=== PATIENT | male | born 1935 | race Caucasian/White ===

== ENCOUNTER 2018-11-19 17:03 | Inpatient (IN) | payer MEDICARE, BC ==
[~2018-11-19] VITALS: Ht 185.4 cm; Wt 78.9 kg
[~2018-11-19 17:03] MED LIST: AMLO10TA4 PO; ASPI-605 PO; DUTA0.5C2 PO; ENOX40DI SQ; FERR325T23 PO; LEVO125T PO; ROSU20TA2 PO
--- NOTE | 2018-11-19 17:16 | NUR ---
PT BIB AND FRIEND C/O VOMITNG SINCE LAST NIGHT AND GEN WEAKNESS, PT IS AAOX3, NOT IN RESPIRATORY DISTRESS, HOOKED TO MONITOR, KEPT RESTED AND COMFORTABLE, WILL CONTINUE TO MONITOR.
--- NOTE | 2018-11-19 17:20 | NUR ---
IV LINE ESTABLISHED, BLOOD DRAWNED AND SENT TO LAB.
--- NOTE | 2018-11-19 17:28 | NUR ---
AT BEDSIDE FOR EVAL.
[2018-11-19] MEDS ORDERED: ONDANSETRON HCL/PF 4 MG/2 ML VIAL ONE (17:33)
[2018-11-19] MEDS ORDERED: PANTOPRAZOLE 40 MG VIAL ONE (17:43)
[2018-11-19 17:48] LABS: BASOPHILS # (AUTO) 0.2 /CMM (0.0-0.2); BASOPHILS % (AUTO) 1.6 % (0.0-2.0); HEMATOCRIT 34 % (39-51); HEMOGLOBIN 11.3 g/dL (13.5-17.5); LYMPHOCYTES # (AUTO) 0.3 /CMM (0.8-4.8); LYMPHOCYTES % (AUTO) 2.8 % (20.0-44.0); MEAN CORPUSCULAR HGB CONC 33 g/dl (31.0-36.0); MEAN CORPUSCULAR VOLUME 85 fL (80-96); MONOCYTES # (AUTO) 0.4 /CMM (0.1-1.30); MONOCYTES % (AUTO) 3.6 % (2.0-12.0); NEUTROPHILS # (AUTO) 9.6 /CMM (1.8-8.9); PLATELET COUNT (AUTO) 113 /CMM (150-450); RED BLOOD CELL COUNT(AUTO) 4.04 MIL/uL (4.5-6.0); WHITE BLOOD COUNT (AUTO) 10.5 K/uL (4.3-11.0)
--- NOTE | 2018-11-19 17:52 | NUR ---
HEEL ROOM SUPERVISOR AT BEDSIDE FOR XRAY.
[2018-11-19] MEDS ORDERED: IV NS 0.9% 1,000 ML BAG IV ONE ×3 (18:00→20:00)
[2018-11-19] MEDS ORDERED: ONDANSETRON HCL/PF 4 MG/2 ML VIAL IVP ONE (18:00)
[2018-11-19] MEDS ORDERED: PANTOPRAZOLE 40 MG VIAL IV ONE (18:00)
[2018-11-19 18:02] LABS: ALANINE AMINOTRANSFERASE 17 U/L (12-78); ALBUMIN 3.3 g/dL (3.4-5.0); ALKALINE PHOSPHATASE 44 U/L (46-116); ASPARTATE AMINOTRANSFERASE 29 U/L (15-37); BILIRUBIN,DIRECT 0.2 mg/dL (0.0-0.2); BILIRUBIN,TOTAL 0.7 mg/dL (0.2-1.0); CALCIUM, SERUM 8.9 mg/dL (8.5-10.1); CARBON DIOXIDE 23 mmol/L (21-32); CHLORIDE 101 mmol/L (98-107); CREATININE 1.6 mg/dL (0.6-1.3); GLUCOSE 143 mg/dL (74-106); LIPASE 161 U/L (73-393); POTASSIUM 3.8 mmol/L (3.5-5.1); SODIUM SERUM 135 mmol/L (136-145); TOTAL PROTEIN, SERUM 6.4 g/dL (6.4-8.2); UREA NITROGEN, BLOOD 31 mg/dL (7-18)
--- NOTE | 2018-11-19 18:16 | NUR ---
PT IS WHEELED TO CT SCAN VIA [facility]
[2018-11-19] MEDS ORDERED: CLOP75TA15 PO (18:32)
--- NOTE | 2018-11-19 19:18 | NUR ---
BED ASSIGNMENT 323-1
--- NOTE | 2018-11-19 19:30 | NUR ---
PAGED NALINI FRANKLIN SOCIAL WORKER DELINQUENCY PREVENTION
--- NOTE | 2018-11-19 19:44 | NUR ---
DR. ANDREWS ON THE PHONE WITH DR. LONDON
--- NOTE | 2018-11-19 19:54 | NUR ---
REPORT GIVEN TO SIVA ANDERSON.
[2018-11-19 20:28] LABS: APPEARANCE,URINE Slightly Cloudy (CLEAR); BILIRUBIN,URINE SMALL (NEGATIVE); BLOOD, URINE Small Ery/uL (NEGATIVE); COLOR,URINE Dark (YELLOW); KETONES,URINE Trace (NEGATIVE); LEUKOCYTE ESTERASE ,URINE Negative (NEGATIVE); NITRITE, URINE Negative (NEGATIVE); PH,URINE 5.5 (5.0-8.0); PROTEIN,URINE 30 mg/dl (NEGATIVE); UGLUCOSE Negative (NEGATIVE); UROBILINOGEN,URINE 0.2 EU/dL (0.2)
[2018-11-19 20:35] LABS: BACTERIA,URINE Few /HPF (None Seen); RBC,URINE 0-2 /HPF (0-2); SQUAMOUS EPITHELIAL CELL,UR Moderate /HPF (None Seen); WBC,URINE 0-2 /HPF (0-3)
[2018-11-19 22:00] VITALS: BP 94/54
[2018-11-19 22:02] VITALS: BP 92/57
--- NOTE | 2018-11-19 22:02 | NUR ---
GRADUATE STUDIES DEAN OPENING NOTES: RECEIVED PT ON ROOM AIR AND IS TOLERATING WELL. PT IS A/OX3. WHEN ASKED SOME QUESTIONS, PT DOES NOT FULLY REMEMBER WHAT HAPPENED. PT HAS IV ON RAC #18G AND IS BEING BOLUSED WITH A LITER OF NS. PT TO BE PLACED ON TELE MONITOR. BED KEPT IN LOW, LOCKED POSITION, AND SIDE RAILS X 2UP. BED ALARM ACTIVATED. WILL CONTINUE TO MONITOR PT. Addendum: 11/19/18 at 2247 by MIR DOMINGUEZ RN PT ALSO CAME WITH JOHNSTON CATHETER INSERTED BY ER DRAINING TO GRAVITIY WITH FABIAN URINE SHOWING.
[2018-11-19] MEDS ORDERED: ZOLPIDEM TARTRATE 5 MG TABLET PO PRN (22:30)
[2018-11-19] MEDS ORDERED: ONDANSETRON HCL/PF 4 MG/2 ML VIAL IVP PRN (22:30)
[2018-11-19] MEDS ORDERED: MAG HYDROX/AL HYDROX/SIMETH 30 ML UDC PO PRN (22:30)
[2018-11-19] MEDS ORDERED: ACETAMINOPHEN 325 MG TABLET PO PRN (22:30)
[2018-11-19] MEDS ORDERED: Z GUARD REMEDY 2 OZ OINT TP PRN (22:30)
[2018-11-19] MEDS ORDERED: HYDROCODONE/APAP 5/325MG 1 EACH TABLET PO PRN (22:30)
--- NOTE | 2018-11-19 22:45 | NUR ---
WOODS SUPERINTENDENT NOTES: TELE READING SHOWS SB 57 WITH PVCS.
--- NOTE | 2018-11-19 22:54 | NUR ---
NASIR ANDERSON NOTES: DR. CRESPO AT BEDSIDE. Addendum: 11/19/18 at 2254 by MIR DOMINGUEZ RN DR. CRESPO AWARE OF BP 92/57 HR 59.
--- NOTE | 2018-11-19 23:16 | NUR ---
DETECTIVE BUREAU CHIEF NOTES: SPOKE WITH DR. CRESPO; OK TO HOLD OFF PICC LINE PLACEMENT. NOT NECESSARY AT THIS TIME.
[2018-11-19] MEDS: IV NS 0.9% 1,000 ML IV SCH (23:19)
[2018-11-20] VITALS (8 sets, daily range): BP systolic 84–114; BP diastolic 50–75
[2018-11-20 06:31] LABS: BASOPHILS % (AUTO) 0.2 % (0.0-2.0); EOSINOPHILS % (AUTO) 0.1 % (0.0-6.0); HEMATOCRIT 28 % (39-51); HEMOGLOBIN 9.5 g/dL (13.5-17.5); LYMPHOCYTES # (AUTO) 0.5 /CMM (0.8-4.8); LYMPHOCYTES % (AUTO) 6.9 % (20.0-44.0); MEAN CORPUSCULAR HGB CONC 34 g/dl (31.0-36.0); MEAN CORPUSCULAR VOLUME 84 fL (80-96); MONOCYTES # (AUTO) 0.3 /CMM (0.1-1.30); NEUTROPHILS # (AUTO) 6.1 /CMM (1.8-8.9); NEUTROPHILS % (AUTO) 87.8 % (43.0-81.0); PLATELET COUNT (AUTO) 93 /CMM (150-450); RED BLOOD CELL COUNT(AUTO) 3.36 MIL/uL (4.5-6.0)
--- NOTE | 2018-11-20 06:42 | NUR ---
DIAMOND ASSORTER CLOSING NOTES: ALL NEEDS WERE ATTENDED AND ANTICIPATED FOR. PT RESTING IN BED COMFORTABLY AT THIS TIME. PT IS A/OX3. PT ANTICIPATING BREAKFAST BUT INFORMED HIM THAT HE IS NOT YET CLEARED TO HAVE ANYTHING TO EAT OR DRINK. PT ON TELE MONITOR AND READING SHOWS SB 58. PT ALSO HAS JOHNSTON CATH AND IS ATTACHED TO DRAINAGE BAG WITH URINE DRAINING. OUTPUT WAS 450ML. BED ALARM ACTIVATED. BED KEPT IN LOW, LOCKED POSITION, AND SIDE RAILS X 2UP. WILL ENDORSE TO AM NURSE FOR GYPSY. Addendum: 11/20/18 at 0648 by MIR DOMINGUEZ RN PT HAS IV ON R AC #18G AND IS BEING INFUSED WITH IV NS AT 100ML/HR.
[2018-11-20 07:06] LABS: CALCIUM, SERUM 7.7 mg/dL (8.5-10.1); CREATININE 1.3 mg/dL (0.6-1.3); MAGNESIUM 1.9 mg/dL (1.8-2.4); PHOSPHORUS 3.7 mg/dL (2.5-4.9); POTASSIUM 4.1 mmol/L (3.5-5.1)
--- NOTE | 2018-11-20 08:00 | NUR ---
RN NOTES SEEN PATIENT IN THE BED SLEEPING, NO ACUTE RESPIRATORY DISTRESS, V/S STABLE. AROUSE WHEN CALLED NAME OR TOUCHED, CALL LIGHT WITHIN TO REACH, CONTINUED MONITORING.
--- NOTE | 2018-11-20 08:30 | NUR ---
rn notes d/c tele to med surge per battery plate remover Dr. Rivera.
[2018-11-20] MEDS: ATORVASTATIN 40 MG TABLET PO SCH (08:51)
[2018-11-20] MEDS: LEVOTHYROXINE SODIUM 125 MCG TABLET PO SCH (08:52)
[2018-11-20] MEDS: AMLODIPINE BESYLATE 10 MG TABLET PO SCH (08:53)
[2018-11-20] MEDS: IV NS 0.9% 1,000 ML IV SCH ×2 (08:57→23:32)
[2018-11-20] MEDS ORDERED: Medication Not On Formulary EA (Rosuvastatin Calcium (Crestor) 20 MG) PO SCH (09:00)
--- NOTE | 2018-11-20 09:14 | NUR ---
RN NOTES SEEN PATIENT BY MIKAL WAGNER, REMOVED JOHNSTON CATHETER, ALSO CHANGED NPO TO CLEAR LIQUID DIET TOLERATED, ADMINISTERED SCHEDULED MEDICATION, HELD NORVASC, BECAUSE OF LOW BP 107/65, P-63, PATIENT STABLE, REFUSED PAIN, NO COMPLAINING OF NAUSEA/VOMITING. CALL LIGHT WITHIN TO REACH CONTINUED MONITORING.
[2018-11-20 10:10] LABS: BAND % (MANUAL) 2 % (0.0-5.0); LYMPHOCYTES % (MANUAL) 6 % (16-48); MONOCYTES % (MANUAL) 3 % (0-11.0); NEUTROPHILS % (MANUAL) 89 (42-76)
--- NOTE | 2018-11-20 13:14 | NUR ---
rn notes Seen patient by gastrologist Dr. Lewis, no new orders keep patient clear liquid diet. continued monitoring.
--- NOTE | 2018-11-20 14:00 | NUR ---
rn notes PATIENT WAS WALKING WITH THE PT, USING WALKER, SAFETY PRECAUTION MAINTAINED ALL THE TIME.
--- NOTE | 2018-11-20 18:30 | NUR ---
RN NOTES PATIENT STABLE, REFUSED PAIN, NO ACUTE RESPIRATORY DISTRESS, V/S STABLE. INFUSING NS AT 75 ML/HR ON RIGHT AC AREA INTACT. PATIENT AMBULATORY, CALL LIGHT WITHIN TO REACH. SAFETY PRECAUTION MAINTAINED ALL THE TIME. ENDORSED ONCOMING NURSE FOLLOW PLAN OF CARE.
--- NOTE | 2018-11-20 20:00 | NUR ---
ms rn notes received pts in bed a/ox4 no sob no distress noted breathing even and unlabored ,on room air sating 97%. v/s stable afebrile , all needs attended too call light within reach , all due meds given as ordered , with ivf of ns at 75cc/hr infusing well , with iv site on right fa g#22 and right ac G#18 intact and patent .Dressing on left neck dry no bleeding noted , kept pts clean dry and comfortable.
[2018-11-21 06:20] LABS: BASOPHILS % (AUTO) 0.3 % (0.0-2.0); EOSINOPHILS % (AUTO) 1.2 % (0.0-6.0); HEMATOCRIT 28 % (39-51); HEMOGLOBIN 9.2 g/dL (13.5-17.5); LYMPHOCYTES # (AUTO) 0.7 /CMM (0.8-4.8); MEAN CORPUSCULAR HGB CONC 33 g/dl (31.0-36.0); MEAN CORPUSCULAR VOLUME 85 fL (80-96); MONOCYTES # (AUTO) 0.7 /CMM (0.1-1.30); MONOCYTES % (AUTO) 12.7 % (2.0-12.0); NEUTROPHILS # (AUTO) 4.1 /CMM (1.8-8.9); NEUTROPHILS % (AUTO) 73.8 % (43.0-81.0); PLATELET COUNT (AUTO) 80 /CMM (150-450); RED BLOOD CELL COUNT(AUTO) 3.33 MIL/uL (4.5-6.0); WHITE BLOOD COUNT (AUTO) 5.5 K/uL (4.3-11.0)
[2018-11-21 06:22] LABS: CALCIUM, SERUM 7.6 mg/dL (8.5-10.1); CARBON DIOXIDE 24 mmol/L (21-32); CHLORIDE 108 mmol/L (98-107); CREATININE 1.3 mg/dL (0.6-1.3); GLUCOSE 94 mg/dL (74-106); SODIUM SERUM 138 mmol/L (136-145); UREA NITROGEN, BLOOD 21 mg/dL (7-18)
--- NOTE | 2018-11-21 07:08 | NUR ---
ms rn notes pts in bed awake and responsive , continue on ns at 75cc/hr infusing well, all needs attended too call light within reach , pts on mechanical soft diet as advance pts toierated full liquids .pts is comfortable in bed . will endorse to rn day shift for continuity of care.
[2018-11-21] MEDS: LEVOTHYROXINE SODIUM 125 MCG TABLET PO SCH (07:13)
[2018-11-21 08:00] VITALS: BP 124/71
--- NOTE | 2018-11-21 08:00 | NUR ---
RN NOTES RECEIVED PATIENT IN THE BED A/O X3/4 NO ACUTE RESPIRATORY DISTRESS. PATIENT REFUSED PAIN, INFUSING NS AT 75 ML/HR ON RIGHT FA INTACT. PATIENT USING URINAL. PATIENT TURN AND REPOSTION SELF IN THE BED. ALSO ADMINISTERED SCHEDULED MEDICATION. SEEN MIKAL WAGNER. PATIENT POSSIBLE DISCHARGEE HOME IN AFTERNOON AFTER TOLERATING REGULAR FOOD.
[2018-11-21 09:58] VITALS: BP 124/71
[2018-11-21] MEDS: ATORVASTATIN 40 MG TABLET PO SCH (09:58)
[2018-11-21] MEDS: AMLODIPINE BESYLATE 10 MG TABLET PO SCH (09:58)
--- NOTE | 2018-11-21 10:30 | NUR ---
RN NOTES PATIENT WALKING IN THE HALLWAY USING WALKER, STABLE, NO COMPLAINING OF PAIN, V/S STABLE, NO NAUSEA VOMITING, STABLE TO AMBULATING.
[2018-11-21] MEDS: IV NS 0.9% 1,000 ML IV SCH (10:47)
--- NOTE | 2018-11-21 12:21 | NUR ---
rn notes patient will discharge home self care per hospitalist order MIKAL Stiles.
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
== END 2018-11-21 13:45 | disposition home or self-care (01) | DRG 683 ==
LOC: ER 17:05 → TELE 19:47 → MED 11-20 08:30
PROVIDERS: ADMIT Family Medicine; ATTEND Nurse Practitioner Acute Care
DX: N17.0 Acute kidney failure with tubular necrosis (principal); E87.2 Acidosis; E44.1 Mild protein-calorie malnutrition; K92.0 Hematemesis; I10 Essential (primary) hypertension; E03.9 Hypothyroidism, unspecified; I48.91 Unspecified atrial fibrillation; I25.10 Atherosclerotic heart disease of native coronary artery without angina pectoris; I70.90 Unspecified atherosclerosis; E78.5 Hyperlipidemia, unspecified; K57.30 Diverticulosis of large intestine without perforation or abscess without bleeding; K44.9 Diaphragmatic hernia without obstruction or gangrene; N40.0 Benign prostatic hyperplasia without lower urinary tract symptoms; I25.2 Old myocardial infarction; Z95.5 Presence of coronary angioplasty implant and graft; Z88.0 Allergy status to penicillin; D64.9 Anemia, unspecified; R73.9 Hyperglycemia, unspecified; E86.0 Dehydration; Z85.828 Personal history of other malignant neoplasm of skin; K52.9 Noninfective gastroenteritis and colitis, unspecified
CPT/HCPCS: 36415; 71045-TC; 80048-TC; 80061-TC; 80076-TC; 81000-TC; 83605-TC; 83690-TC; 83735-TC; 84100-TC; 84484-TC; 85025-TC; 85730-TC; 86850-TC; 87040-TC; 87081-TC; 87086-TC; C9113; G0378; J2405; J7030; J7050

== ENCOUNTER 2019-11-21 18:05 | Emergency (ER) | payer MEDICARE, BC ==
[~2019-11-21] VITALS: Ht 185.4 cm; Wt 70.8 kg
[~2019-11-21 18:05] MED LIST changes: -ASPI-605 PO; +CLOP75TA15 PO; -DUTA0.5C2 PO; -ENOX40DI SQ; -FERR325T23 PO
--- NOTE | 2019-11-21 18:27 | NUR ---
BIB FRIEND FOR SOB THAT STARTED LAST NIGHT. DENIES CHEST PAIN. AFEBRILE MOLDER FEEDER, TO ER BED 8, HOOKED TO MONITOR, PATIENT ON ROOM AIR AT 98% O2 SATURATION, CHANGED TO HOSP GOWN, WARM BLANKET PROVIDED, PATIENT AAO x 4, AWAITING MD KOENIG
--- NOTE | 2019-11-21 18:40 | NUR ---
DR BAPTISTE AT BEDSIDE
--- NOTE | 2019-11-21 19:18 | NUR ---
xray at bedside
--- NOTE | 2019-11-21 19:18 | NUR ---
blood collected and sent to the lab.
--- NOTE | 2019-11-21 19:21 | NUR ---
MACHINE MAINTENANCE TECHNICIAN AT BEDSIDE
[2019-11-21 19:28] LABS: BASOPHILS % (AUTO) 0.9 % (0.0-2.0); EOSINOPHILS % (AUTO) 2.4 % (0.0-6.0); HEMATOCRIT 42 % (39-51); HEMOGLOBIN 13.5 g/dL (13.5-17.5); LYMPHOCYTES # (AUTO) 1.4 /CMM (0.8-4.8); LYMPHOCYTES % (AUTO) 26.2 % (20.0-44.0); MEAN CORPUSCULAR HGB CONC 33 g/dl (31.0-36.0); MEAN CORPUSCULAR VOLUME 91 fL (80-96); MONOCYTES # (AUTO) 0.4 /CMM (0.1-1.30); MONOCYTES % (AUTO) 7.6 % (2.0-12.0); NEUTROPHILS # (AUTO) 3.3 /CMM (1.8-8.9); NEUTROPHILS % (AUTO) 62.9 % (43.0-81.0); PLATELET COUNT (AUTO) 116 /CMM (150-450); RED BLOOD CELL COUNT(AUTO) 4.56 MIL/uL (4.5-6.0); WHITE BLOOD COUNT (AUTO) 5.2 K/uL (4.3-11.0)
[2019-11-21 19:42] LABS: CARBON DIOXIDE 23 mmol/L (21-32); CHLORIDE 105 mmol/L (98-107); CREATININE 1.5 mg/dL (0.6-1.3); GLUCOSE 93 mg/dL (74-106); POTASSIUM 4.2 mmol/L (3.5-5.1); SODIUM SERUM 143 mmol/L (136-145); UREA NITROGEN, BLOOD 32 mg/dL (7-18)
[2019-11-21 19:52] LABS: ALANINE AMINOTRANSFERASE 47 U/L (12-78); ALBUMIN 4.2 g/dL (3.4-5.0); ALKALINE PHOSPHATASE 54 U/L (46-116); ASPARTATE AMINOTRANSFERASE 36 U/L (15-37); B-TYPE NATRIURETIC PEPTIDE 129 PG/ML (0-125); BILIRUBIN,DIRECT 0.2 mg/dL (0.0-0.2); BILIRUBIN,TOTAL 0.8 mg/dL (0.2-1.0); TOTAL PROTEIN, SERUM 7.8 g/dL (6.4-8.2)
[2019-11-21] MEDS ORDERED: IV NS 0.9% 500 ML BAG IV ONE (21:00)
--- NOTE | 2019-11-21 22:16 | NUR ---
IV removed. Catheter intact and site benign. Pressure and 4x4 applied to site. No bleeding noted.Patient discharged to home in stable condition. Written and verbal after care instructions given. Patient verbalizes understanding of instruction.
[2019-11-22 01:21] VITALS: BP 148/87
== END 2019-11-21 22:14 | disposition home or self-care (01) ==
LOC: ER 18:14
DX: R06.00 Dyspnea, unspecified (principal); R94.31 Abnormal electrocardiogram [ECG] [EKG]; Z79.02 Long term (current) use of antithrombotics/antiplatelets; E03.9 Hypothyroidism, unspecified; Z79.890 Hormone replacement therapy; I10 Essential (primary) hypertension; I25.10 Atherosclerotic heart disease of native coronary artery without angina pectoris; Z95.5 Presence of coronary angioplasty implant and graft; I25.2 Old myocardial infarction; E78.5 Hyperlipidemia, unspecified; I48.91 Unspecified atrial fibrillation; Z20.828 Contact with and (suspected) exposure to other viral communicable diseases
CPT/HCPCS: 36415; 71045-TC; 80048-TC; 80076-TC; 83880; 84484-TC; 85025-TC; 85378-TC; 85730-TC; C9803-CS

== ENCOUNTER 2022-02-15 18:45 | Emergency (ER) | payer MEDICARE, BC ==
[~2022-02-15] VITALS: Ht 185.4 cm; Wt 79.4 kg
[2022-02-15 20:34] VITALS: BP 152/78
[2022-02-15] MEDS ORDERED: IBUPROFEN 600 MG TABLET PO ONE (21:30)
[2022-02-15] MEDS ORDERED: IBUPROFEN 600 MG TABLET ONE (21:37)
[2022-02-15] MEDS ORDERED: ACET-907 PO (21:44)
--- NOTE | 2022-02-15 22:31 | NUR ---
PT OK TO DISCHARGE PER DR SELLERS. Patient discharged to home in stable condition. Written and verbal after care instructions given. Patient verbalizes understanding of instruction.Patient is awake and alert to self, day, and place.
--- NOTE | 2022-02-15 23:04 | NUR ---
Giovani nevarez in ED - 02/15/22 at 2304 by SHARRI Patient discharged to home in stable condition. Written and verbal after care instructions given. Patient verbalizes understanding of instruction.
== END 2022-02-15 23:04 | disposition home or self-care (01) ==
LOC: ER 18:47
DX: S92.351A Displaced fracture of fifth metatarsal bone, right foot, initial encounter for closed fracture (principal); I10 Essential (primary) hypertension; I25.2 Old myocardial infarction; E78.5 Hyperlipidemia, unspecified; E03.9 Hypothyroidism, unspecified; Z88.0 Allergy status to penicillin; Z79.899 Other long term (current) drug therapy; W01.0XXA Fall on same level from slipping, tripping and stumbling without subsequent striking against object, initial encounter; Y93.89 Activity, other specified; Y92.89 Other specified places as the place of occurrence of the external cause; Y99.8 Other external cause status
CPT/HCPCS: 73630-TC